=== PATIENT | female | born 1965 | race Caucasian/White ===

== ENCOUNTER → 2016-08-03 | Outpatient (CLI) | payer OTHER ==
[~2016-08-03] MED LIST: CALC-823 PO; GEMF600T3 PO; HYDR-3454 PO; LEVO125T6 PO; LISI1TAB6 PO; OMEP20CA6 PO; OMG1KC PO; SIMV40TA4 PO; [UNRECOGNIZED DRUG - CODE] MC
--- NOTE | 2016-08-03 13:08 | Diagnostic Imaging Report ---
PROCEDURE: MRI lumbar spine. TECHNIQUE: Multiplanar, multisequence MRI of the lumbar spine was performed without contrast. INDICATION: Slipped and fall, popping sensation. FINDINGS: Lumbar vertebral statures are normal. Marrow signal intensity is normal. The pedicles and pars appeared intact. There was no paravertebral mass, hemorrhage, or fluid collection. No acute or chronic fracture. T12-L1: This level and disc appeared normal. L1-L2: Very slight anterior disc bulge and anterior osteophytes result in no stenosis. L2-L3: There is disc desiccation, stature loss, and circumferential bulging. Bulging disc material results in mild left foraminal stenosis. Osteophyte disc material slightly effaces the ventral thecal sac, but a substantial degree of canal narrowing not felt present. L3-L4: There is ligamentum flava thickening and facet arthrosis. Trace bulging of the disc and endplate osteophytes anteriorly are noted. Bulging disc material and posterior element hypertrophy result in a mild degree of left foraminal stenosis. L4-L5: There is thickening of the ligamenta flava and facet arthrosis. Disc bulge and endplate osteophytes result in mild biforaminal narrowing, greater right than left. No substantial canal stenosis. L5-S1: Tiny midline disc herniation indents the ventral epidural fat but did not distort the thecal sac. There is no substantial canal, foraminal, or recess narrowing. IMPRESSION: Normal alignment. No marrow edema. No acute-appearing bony pathology. Degenerative changes to the discs, endplates, and posterior elements result in multilevel predominantly mild foraminal stenoses as listed with tiny midline posterior L5-S1 herniation without substantial canal stenosis. Dictated by: Dictated on workstation # [id number]
== END ==
LOC: RAD 11:13
PROVIDERS: ATTEND Nurse Practitioner Family
DX: M54.17 Radiculopathy, lumbosacral region (principal)
CPT/HCPCS: 72148

== ENCOUNTER → 2016-11-09 | Outpatient (CLI) | payer OTHER ==
--- NOTE | 2016-11-12 18:45 | Diagnostic Imaging Report ---
Bilateral screening mammogram The current study was also evaluated with a Computer Aided Detection (CAD) system. Indication: Screening. No current complaints stated on the questionnaire. COMPARISON: 08/01/15 FINDINGS: The breasts are composed of scattered fibroglandular densities. There are scattered benign-appearing calcifications. Allowing for technique and positional differences, no suspicious change is seen. IMPRESSION: No significant change. ACR BI-RADS Category 2: Benign findings. Result letter will be mailed to the patient. Note: At least 10% of breast cancer is not imaged by mammography. Dictated by: Dictated on workstation # [id number]
== END ==
LOC: RAD 10:08
PROVIDERS: ATTEND Nurse Practitioner Family
DX: Z12.31 Encounter for screening mammogram for malignant neoplasm of breast (principal)
CPT/HCPCS: 77067

== ENCOUNTER → 2017-01-04 | Outpatient (CLI) | payer OTHER | LOC: CARD 11:10 | PROVIDERS: ATTEND Nurse Practitioner Family | DX: I87.2 Venous insufficiency (chronic) (peripheral) (principal) | CPT/HCPCS: 93306 ==